=== PATIENT | male | born 1955 | race Caucasian/White ===

== ENCOUNTER 2025-01-20 09:13 | Day surgery (SDC) | payer BC ==
[2025-01-19 11:45] LABS: Absolute Basophils 0.1 K/uL (0-0.5); Absolute Eosinophils 0.2 K/uL (0-0.5); Absolute Lymphocytes (CBC) 1.8 K/uL (0.7-4.9); Absolute Monocytes 0.5 K/uL (0.1-1.3); Absolute Neutrophil 3.2 K/uL (1.8-8.0); Basophils % 0.9 % (0-1.3); Eosinophils % 3.9 % (0-4.4); Hematocrit 43.1 % (39.6-49.0); Lymphocytes % 31.5 % (15.3-44.8); MCHC 34.7 g/dL (32.0-36.0); MCV 89.2 fL (80-100); MPV 8.3 fL (7.6-11.3); Monocytes % 7.9 % (3.3-12.3); Neutrophils % 55.8 % (41.7-73.7); Platelets 258 thou/uL (152-406); RBC Red Blood Cell Count 4.83 M/uL (4.33-5.43); Red Cell Distribution Width 13.5 % (12.1-15.2)
[2025-01-19 11:56] LABS: Anion Gap 6.9 mEq/L (5.0-15.0); Potassium 3.9 mEq/L (3.5-5.1)
[2025-01-20] MEDS: Ringers Lactate 1,000 ML IV ONE (09:50)
[2025-01-20] MEDS ORDERED: propofoL 200 MG/20 ML VIAL IV ONE (10:47)
[2025-01-20] MEDS ORDERED: LIDOCAINE 1% MPF 5 ML VIAL ONE (10:47)
[2025-01-20] MEDS ORDERED: SUCCINYLCHOLINE 20 MG/ML (10 ML) IV ONE (11:15)
--- NOTE | 2025-01-20 12:37 | EKG ---
Test Date: 2025-01-19 Test Time: 11:23:08 Patch Washer: MEASUREMENT RESULTS: Intervals: Rate: 45 GA: 202 QRSD: 112 QT: 490 QTc: 423 [place]: P: 78 GA: 202 QRS: 33 T: -15 INTERPRETIVE STATEMENTS: Marked sinus bradycardia Incomplete left bundle branch block Nonspecific ST abnormality Abnormal ECG No previous ECG available for comparison Electronically Signed On 01-20-25 12:36:23 CDT by Aroldo Swenson
[2025-01-20] MEDS ORDERED: GLYCOPYRROLATE 0.2 MG/ML SYR ONE (12:42)
[2025-01-20 13:50] VITALS: TEMP 97
[2025-01-20 13:52] VITALS: O2SAT 99
[2025-01-20 13:54] VITALS: BP 84/60
== END 2025-01-20 13:29 | disposition home or self-care (01) ==
LOC: OR 09:13
PROVIDERS: ATTEND Surgery
PROC: 0DBN8ZX Excision of Sigmoid Colon, Via Natural or Artificial Opening Endoscopic, Diagnostic (ICD-10-PCS; 2025-01-20)
PROC: 0DBH8ZX Excision of Cecum, Via Natural or Artificial Opening Endoscopic, Diagnostic (ICD-10-PCS; principal; 2025-01-20 11:00)
DX: Z12.11 Encounter for screening for malignant neoplasm of colon (principal); K57.30 Diverticulosis of large intestine without perforation or abscess without bleeding; K64.8 Other hemorrhoids; D12.0 Benign neoplasm of cecum; D12.5 Benign neoplasm of sigmoid colon; N42.9 Disorder of prostate, unspecified
CPT/HCPCS: 45380; 93005; 85025; 80048; 36415; 88305; J2704; J2003; J7120